=== PATIENT | female | born 1955 | race Two or more races ===

== ENCOUNTER 2023-08-18 16:23 | Outpatient (CLI) | payer OTHER | END 2023-08-18 16:25 | disposition home or self-care (01) | LOC: SONOGRAMA 16:23 | PROVIDERS: ATTEND Pathology Anatomic Pathology & Clinical Pathology | DX: C73 Malignant neoplasm of thyroid gland (principal); D34 Benign neoplasm of thyroid gland; E07.89 Other specified disorders of thyroid; E04.2 Nontoxic multinodular goiter ==